=== PATIENT | female | born 1970 | race Two or more races ===

== ENCOUNTER → 2017-06-13 20:47 | Outpatient (CLI) | payer BC, SELFPAY | PROVIDERS: Visit Provider Obstetrics & Gynecology | DX: Z01.419 Encounter for gynecological examination (general) (routine) without abnormal findings (principal) ==

== ENCOUNTER → 2018-06-30 18:00 | Outpatient (CLI) | payer BC, SELFPAY ==
[2018-07-06 10:19] LABS: HPV APTIMA, High Risk Negative (Negative)
== END ==
PROVIDERS: Referring Provider Obstetrics & Gynecology; Visit Provider Obstetrics & Gynecology
DX: Z12.4 Encounter for screening for malignant neoplasm of cervix (principal)
CPT/HCPCS: 87624; 88175; G0145

== ENCOUNTER → 2019-12-02 | Outpatient (CLI) | payer OTHER, SELFPAY ==
[2019-12-08 17:00] LABS: HPV APTIMA, High Risk Negative (Negative)
== END | disposition home or self-care (01) ==
LOC: LABSPEC 13:33
PROVIDERS: Visit Provider Obstetrics & Gynecology
DX: Z12.4 Encounter for screening for malignant neoplasm of cervix (principal)
CPT/HCPCS: 87624; 88175; G0145

== ENCOUNTER → 2020-11-09 11:11 | Outpatient (CLI) | payer OTHER, SELFPAY ==
--- NOTE | 2020-11-09 | CER_PTH ---
PATIENT: JOE CEE LOC: [facility] U#:[id number] AGE/SX: 54/F ROOM: RE11/09/[address]: Dr. Shefali Molina MD : 1970 BED: DIS: SPEC #: [id number] RECD: 11/09/20 12:42 STATUS: VALENTINA MARY #: [id number] LUCIA: 11/09/20 00:[address]: Shefali Forbes DEPT: SURGICAL PATHOLOGY RECD BY: Steff Kunz Tissues: Uterine cervix, NOS Procedures: Surgery Specimen Level IV HEADER OPERATION: Cervical polyp removal PRE-OP DIAGNOSIS: Cervical polyp TISSUE SUBMITTED: Cervical polyp MICROSCOPIC DIAGNOSIS Cervical polyp, biopsy: Benign endocervical polyp wit vascular congestion, mildly inflamed. AM:robby 11/11/2020 MICROSCOPIC DESCRIPTION Slides are reviewed. GROSS DESCRIPTION Received in fixative is one container labeled with the patient's name and designated polyp. The specimen consists of a single irregular fragment of sahu tissue measuring 0.6 x 0.3 x 0.2 cm. The specimen is totally submitted in one cassette. / AM:robby 11/10/20 TC:1 CPT: [id number]
[2020-11-11 18:41] LABS: HPV APTIMA, High Risk Negative (Negative)
== END ==
PROVIDERS: Visit Provider Obstetrics & Gynecology
DX: N84.1 Polyp of cervix uteri (principal); Z12.4 Encounter for screening for malignant neoplasm of cervix
CPT/HCPCS: 87624; 88175; 88305; G0145